=== PATIENT | male | born 1970 | race Asian ===

== ENCOUNTER 2016-07-31 18:44 | Inpatient (IN) | payer OTHER ==
[~2016-07-31] VITALS: Ht 167.6 cm; Wt 70.3 kg
[2016-07-31 19:31] LABS: BASOPHIL % 0.3 % (0-2); PLATELET COUNT 239 x10^3mcL (130-400); RED CELL DISTRIBUTION WIDTH 13.4 % (11.5-14.5)
[2016-07-31 19:36] LABS: CALCIUM 8.7 mg/dL (8.5-10.1); CARBON DIOXIDE 28.8 mmol/L (21-32); CHLORIDE SERUM 104 mmol/L (98-107); GFR1 > 60 mL/min; GLUCOSE SERUM 106 mg/dL (74-106); POTASSIUM SERUM 3.5 mmol/L (3.5-5.1); SODIUM SERUM 141 mmol/L (136-145)
[2016-07-31 19:40] LABS: ALBUMIN 3.8 g/dL (3.4-5.0); ALKALINE PHOSPHATASE 54 U/L (46-116); ALT/SGPT 35 U/L (16-63); AMYLASE 76 U/L (25-115); AST/SGOT 16 U/L (15-37); BILIRUBIN TOTAL 0.6 mg/dL (0.20-1.00); CHOLESTEROL 185 mg/dL (<200); LIPASE 178 IU/L (73-393); TOTAL PROTEIN, SERUM 7.5 g/dL (6.4-8.2)
[2016-07-31 19:42] LABS: HDL CHOLESTEROL 72 mg/dL (40-60)
[2016-07-31 22:56] VITALS: BP 126/84
[2016-07-31 23:11] VITALS: BP 126/84
[2016-07-31 23:55] LABS: MAGNESIUM 1.9 mg/dL (1.8-2.4); PHOSPHOROUS 2.7 mg/dL (2.5-4.9)
[2016-07-31 23:56] LABS: CHOLESTEROL/HDL RATIO 2.8
[2016-08-01 00:05] LABS: FREE T4 1.04 ng/dL (0.76-1.46); T3 TOTAL 1.03 ng/mL; T4(THYROXINE) 8.3 ug/dL (4.7-13.3)
[2016-08-01 05:41] VITALS: BP 109/68
[2016-08-01 06:23] LABS: BASOPHIL % 0.5 % (0-2); PLATELET COUNT 226 x10^3mcL (130-400); RED CELL DISTRIBUTION WIDTH 13.4 % (11.5-14.5)
[2016-08-01 06:52] LABS: microscopic required? NO
[2016-08-01 07:08] LABS: ALBUMIN 3.7 g/dL (3.4-5.0); CALCIUM 8.6 mg/dL (8.5-10.1); CARBON DIOXIDE 26.5 mmol/L (21-32); CHLORIDE SERUM 107 mmol/L (98-107); CREATININE SERUM 0.7 mg/dL (0.7-1.3); GFR1 > 60 mL/min; GLUCOSE SERUM 96 mg/dL (74-106); SODIUM SERUM 142 mmol/L (136-145)
[2016-08-01 09:28] VITALS: BP 95/52
[2016-08-01 09:37] LABS: UA SPECIFIC GRAVITY 1.015 (1.005-1.035); urine erythrocyte NEGATIVE (NEGATIVE)
[2016-08-01 09:51] LABS: AMPHETAMINE QUAL UR NONE DETECTED (NEG <=1000)
== END 2016-08-01 12:51 | disposition left against medical advice (07) | DRG 812 ==
LOC: ED 18:44 → DU 21:47
PROVIDERS: Emergency Medicine; ADMIT Family Medicine
DX: T43.611A Poisoning by caffeine, accidental (unintentional), initial encounter (principal); N17.0 Acute kidney failure with tubular necrosis; R55 Syncope and collapse; I16.0 Hypertensive urgency; E78.5 Hyperlipidemia, unspecified; R73.03 Prediabetes; Z68.25 Body mass index [BMI] 25.0-25.9, adult; Y92.002 Bathroom of unspecified non-institutional (private) residence as the place of occurrence of the external cause
CPT/HCPCS: 36600; 83880; 84439; 85378; J7030; Q0092; Q9967

== ENCOUNTER 2017-03-04 18:10 | Emergency (ER) | payer OTHER ==
[2017-03-04] MEDS ORDERED: ASPIR 8181 MG PO (18:36)
[2017-03-04] MEDS ORDERED: TRAZODONE50 M1 PO (18:36)
[2017-03-04] MEDS ORDERED: PROTONIX20 MG PO (18:36)
[2017-03-04] MEDS ORDERED: LOSARTAN POTASS50 M1 PO (18:37)
[2017-03-04] MEDS ORDERED: INDERAL XL120 MG PO (18:37)
[2017-03-04] MEDS ORDERED: DOK COLACE100 MG PO (18:38)
[2017-03-04] MEDS ORDERED: DULERA1 AR3 INH (18:38)
[2017-03-04] MEDS ORDERED: FERROUS SULFAT325 M2 PO (18:38)
[2017-03-04] MEDS ORDERED: DICLOFENAC SODI75 MG PO (18:38)
[2017-03-04 19:00] LABS: PLATELET COUNT 234 x10^3mcL (130-400)
[2017-03-04 19:02] LABS: BASOPHIL % 0 % (0-2)
[2017-03-04 19:03] LABS: CALCIUM 8.3 mg/dL (8.5-10.1); CARBON DIOXIDE 28.7 mmol/L (21-32); CHLORIDE SERUM 100 mmol/L (98-107); CREATININE SERUM 0.9 mg/dL (0.7-1.3); GFR1 > 60 mL/min; GLUCOSE SERUM 125 mg/dL (74-106); POTASSIUM SERUM 3.8 mmol/L (3.5-5.1); SODIUM SERUM 139 mmol/L (136-145)
[2017-03-04 19:07] LABS: ALBUMIN 4.2 g/dL (3.4-5.0); ALKALINE PHOSPHATASE 62 U/L (46-116); ALT/SGPT 38 U/L (16-63); AST/SGOT 16 U/L (15-37); BILIRUBIN TOTAL 0.7 mg/dL (0.20-1.00); LIPASE 199 IU/L (73-393); TOTAL PROTEIN, SERUM 7.8 g/dL (6.4-8.2)
[2017-03-04 20:31] VITALS: BP 116/67
== END 2017-03-04 20:31 | disposition home or self-care (01) ==
LOC: ED 18:10
PROVIDERS: Emergency Medicine
DX: R55 Syncope and collapse (principal); R19.7 Diarrhea, unspecified; R10.10 Upper abdominal pain, unspecified
CPT/HCPCS: J7030; Q0092